=== PATIENT | male | born 1950 | race Caucasian/White ===

== ENCOUNTER 2017-04-14 18:48 | Emergency (ER) | payer MEDICARE, OTHER ==
[2017-04-14] MEDS ORDERED: IBUPROFEN 600 MG TABLET PO ONE (19:35)
[2017-04-14] MEDS ORDERED: ACETAMINOPHEN 325 MG TABLET PO ONE (19:36)
[2017-04-14] MEDS ORDERED: NORMAL SALINE 1,000 ML IV ONE (19:36)
[2017-04-14 19:40] LABS: BLOOD UREA NITROGEN 18 mg/dL (9-20); CALCIUM 8.8 mg/dL (8.4-10.2); CHLORIDE 103 mmol/L (98-107); EST GLOMERULAR FILTRATION RATE > 60 mL/min; GLUCOSE 126 mg/dL (70-100); SODIUM 137 mmol/L (137-145)
[2017-04-14 19:46] LABS: HEMATOCRIT 37.1 % (42.0-54.0); HEMOGLOBIN 12.6 g/dL (14.0-18.0); MEAN CELL VOLUME 95.9 fL (80.0-100.0); MEAN CORPUS. HGB CONCENTRATION 33.8 g/dL (32.0-36.0); MEAN CORPUSCULAR HEMOGLOBIN 32.4 pg (29.0-35.0); MEAN PLATELET VOLUME 7.9 fL (7.4-10.4); PLATELET COUNT 182 X 10^3uL (130-440); RED BLOOD COUNT 3.87 X 10^6uL (4.20-6.10); RED CELL DISTRIBUTION WIDTH 13.9 % (11.5-14.5); WHITE BLOOD COUNT 5.9 X 10^3uL (3.9-10.7)
[2017-04-14 20:05] LABS: BAND% (Manual) 1 % (0.0-1.0); EOSINOPHIL % (Manual) 1 % (0.0-6.0); LYMPHOCYTE % (Manual) 10 % (20.0-40.0); MONOCYTE % (Manual) 12 % (2.0-10.0); NEUTROPHIL % (Manual) 71 % (54.0-75.0)
[2017-04-14 20:06] LABS: OVALOCYTES PRESENT; PLATELET ESTIMATE ADEQUATE
[2017-04-14 20:07] LABS: STOMATOCYTE PRESENT
[2017-04-14] MEDS ORDERED: cefTRIAXone SODIUM 1,000 MG/10 ML VIAL ONE (20:38)
[2017-04-14] MEDS ORDERED: IPRATROPIUM/ALBUTEROL 0.5/3 MG 3 ML AMPUL.NEB INHALATION ONE (20:39)
[2017-04-14] MEDS ORDERED: NORMAL SALINE 100 ML IV ONE (20:39)
--- NOTE | 2017-04-14 21:36 | ER PHYSICIAN DOCUMENTATION ---
Physician Documentation [facility] Name:Nicholas Gomez Age:66 yrs Sex:Male :1950 Arrival Date:04/14/2017 Time:18:48 Bed5 Private MD:Thony Rodrigues ED, Chris Disposition: 04/14/17 21:17 Discharged to Home/Self Care. Impression: Pneumonia Bacterial - : Acute LLL. - Condition is Good. - Discharge Instructions: PNEUMONIA (Adult). - Prescriptions for cefdinir 300 mg Oral capsule - take 1 capsule by ORAL route every 12 hours for 10 days; 20 capsule. Ventolin HFA 90 mcg/actuation Inhalation HFA aerosol inhaler - inhale 2 puff by INHALATION route every 6 hours for 7 days; 1 Cartridge. - Medical Reconciliation form form. - Follow up: [facility]; When: 4- 6 days; Reason: Recheck today's complaints, Continuance of care. - Problem is new. - Symptoms have improved. - Notes: TAke Cefdinir 300mg by mouth every 12 hours for 10 days. Use Ventolin MDI 2 puffs by mouth every 6 hours for 7 days with Aerochamber.... Take Tylenol 650mg by mouth every 6 hours for 2 days... Take Ibuprofen 600mg by mouth every 6 hours with food for 2 days... Drink 2 liters of water every day... Historical: - Allergies: No known drug Allergies; - PMHx: CANCER; - Tetanus: < 10 years. - Ebola Screening: : Patient negative for fever greater than or equal to 101.5 degrees Fahrenheit, and additional compatible Ebola Virus Disease symptoms. Patient denies exposure to infectious person. Patient denies travel to an Ebola-affected area in the 21 days before illness onset. No symptoms or risks identified at this time. . - Immunization history: Flu Vaccine < 1 year. - Social history: Smoking status: Patient states was never smoker of tobacco. Vital Signs: 04/14 19:00 BP 174 / 87; Pulse 102; Resp 21 S; Temp 101; Pulse Ox 92% on R/A; Weight 113.4 kg; bw2 Height 5 ft. 11 in. (180.34 cm); Pain 0/10; 20:37 Pulse 84; Resp 21; Temp 99.0; Pulse Ox 94% ; bw2 21:19 BP 163 / 74; Pulse 80; Resp 20; Temp 98.9(O); Pulse Ox 94% on R/A; Pain 0/10; bw2 19:00 Body Mass Index 34.87 (113.40 kg, 180.34 cm) 2 MDM: 19:57 Patient medically screened. 04/14 19:46 Order name: BASIC METABOLIC PANEL; Complete Time: 20:21 EDID 04/14 19:58 Interpretation: Normal Except: GLUCOSE 126. 04/14 19:51 Order name: CBC W/ MANUAL DIFFERENTIAL; Complete Time: 20:21 EDID 04/14 19:58 Interpretation: Normal Except: HEMOGLOBIN 12.6; HEMATOCRIT 37.1; Anemia. 04/15 19:27 Order name: BLOOD CULTURE [facility] 04/15 19:27 Order name: BLOOD CULTURE [facility] 04/15 08:57 Order name: CXR 2V [id number] [facility] 04/14 21:22 Order name: Aerochamber - Spacer; Complete Time: 21:35 cd Dispensed Medications: 19:30 Drug: Tylenol 975 mg; Route: PO; bw2 19:46 Follow up: Response: No adverse reaction bw2 19:30 Drug: Ibuprofen 600 mg; Route: PO; bw2 19:46 Follow up: Response: No adverse reaction 2 19:30 Drug: NS 0.9% 1000 ml; Route: IV; Rate: bolus; Site: right antecubital; bw2 20:35 Follow up: IV Status: Completed infusion bw2 20:25 Drug: DuoNeb (Albuterol 2.5 mg, Atrovent 0.5 mg); 3 ml; Route: Nebulizer; bw2 20:37 Follow up: Response: No adverse reaction bw2 20:30 Drug: Rocephin 1 grams; Route: IVPB; Site: right antecubital; bw2 21:13 Follow up: IV Status: Completed infusion bw2 21:35 CANCELLED (Physician Discretion): Ventolin MDI 2 puffs Inhalation Per package bw2 directions; 2 puffs by mouth every 6 hours for 4 - 5 days with Aerochamber Signatures: Steven Carlos MD MD cd Wisely, Beth bw2
--- NOTE | 2017-04-14 21:36 | ER NURSING DOCUMENTATION ---
Nurse's Notes [facility] Name:Nicholas Gomez Age:66 yrs Sex:Male :1950 Arrival Date:04/14/2017 Time:18:48 Bed5 Private MD:Thony Rodrigues Diagnosis:Pneumonia Bacterial-: Acute LLL Presentation: 04/14 18:58 Presenting complaint: Patient states: states heh as been runny fevers at night x 2 bw2 weeks. states he went to his PCP and was given a Z pack. pt states he finished all medications, and no improvement. Transition of care: patient was not received from another setting of care. 18:58 Acuity: VIK 3 bw2 18:58 Method Of Arrival: Walk In 2 Triage Assessment: 19:00 General: Appears in no apparent distress, comfortable, Behavior is anxious, appropriate bw2 for age. Pain: Denies pain. Derm: No deficits noted. Skin is healthy with good turgor, Skin is moist. Historical: - Allergies: No known drug Allergies; - PMHx: CANCER; - Tetanus: < 10 years. - Ebola Screening: : Patient negative for fever greater than or equal to 101.5 degrees Fahrenheit, and additional compatible Ebola Virus Disease symptoms. Patient denies exposure to infectious person. Patient denies travel to an Ebola-affected area in the 21 days before illness onset. No symptoms or risks identified at this time. . - Immunization history: Flu Vaccine < 1 year. - Social history: Smoking status: Patient states was never smoker of tobacco. Screenin:04 Infectious Disease Risk None. Abuse screen: Denies threats or abuse. Denies injuries bw2 from another. Nutritional screening: No deficits noted. Assessment: 19:03 See Triage Assessment done by same RN. Respiratory: Airway is patent Respiratory effort bw2 is even, Respiratory pattern is regular, Breath sounds are diminished bilaterally. Derm: No deficits noted. Vital Signs: 19:00 BP 174 / 87; Pulse 102; Resp 21 S; Temp 101; Pulse Ox 92% on R/A; Weight 113.4 kg; bw2 Height 5 ft. 11 in. (180.34 cm); Pain 0/10; 20:37 Pulse 84; Resp 21; Temp 99.0; Pulse Ox 94% ; bw2 21:19 BP 163 / 74; Pulse 80; Resp 20; Temp 98.9(O); Pulse Ox 94% on R/A; Pain 0/10; bw2 19:00 Body Mass Index 34.87 (113.40 kg, 180.34 cm) bw2 ED Course: 18:51 Patient arrived in ED. ds 18:51 Thony Rodrigues is Private Physician. ds 18:58 Lupe Kyle is Primary Nurse. bw2 19:00 Triage completed. bw2 19:04 Valuables Remains with patient Bed in low position. bw2 19:20 Patient moved to radiology. ca 19:28 Patient moved back from radiology. ca 19:35 Inserted peripheral IV: 18 gauge in right antecubital area and blood collected. bw2 19:57 Steven Carlos MD is Attending Physician. cd 21:16 [facility] is Referral Physician. cd Administered Medications: 19:30 Drug: Tylenol 975 mg; Route: PO; bw2 19:46 Follow up: Response: No adverse reaction bw2 19:30 Drug: Ibuprofen 600 mg; Route: PO; bw2 19:46 Follow up: Response: No adverse reaction bw2 19:30 Drug: NS 0.9% 1000 ml; Route: IV; Rate: bolus; Site: right antecubital; bw2 20:35 Follow up: IV Status: Completed infusion bw2 20:25 Drug: DuoNeb (Albuterol 2.5 mg, Atrovent 0.5 mg); 3 ml; Route: Nebulizer; bw2 20:37 Follow up: Response: No adverse reaction bw2 20:30 Drug: Rocephin 1 grams; Route: IVPB; Site: right antecubital; bw2 21:13 Follow up: IV Status: Completed infusion bw2 21:35 CANCELLED (Physician Discretion): Ventolin MDI 2 puffs Inhalation Per package bw2 directions; 2 puffs by mouth every 6 hours for 4 - 5 days with Aerochamber Outcome: 21:17 Discharge ordered by . cd 21:19 Discharged to home ambulatory. bw2 21:19 Condition: good 21:19 Discharge Assessment: Patient awake, alert and oriented x 3. No cognitive and/or functional deficits noted. Patient verbalized understanding of disposition instructions. 21:19 Discharge instructions given to patient, Instructed on discharge instructions, follow up and referral plans. medication usage, Demonstrated understanding of instructions, medications, Prescriptions given X 2. 21:35 Patient left the ED. bw2 04/15 19:56 Discharge F/U Call: Unable to reach: no answer Signatures: Sydni Flores, Steven Garrison MD MD cd Arterberry, Dulce Sellers Anabella, Lupe 2
[2017-04-14] MEDS ORDERED: INHALER, ASSIST DEVICES 1 PKT EACH ONE (21:37)
--- NOTE | 2017-04-15 08:42 | RADIOLOGY REPORT ---
Two views of the chest are compared with multiple prior films examinations. The heart and vessels are unremarkable. Hazy infiltrate is noted at the left lung base. The lung de jesus are otherwise clear. No fluid or pneumothorax is seen. Incidentally noted is a 6 cm expansile lytic lesion involving the medial aspect of the right clavicle. This appears grossly unchanged dating back to CT scan of 11/06/2009. The finding is consistent with the known history of myeloma. IMPRESSION: 1. Stable lytic lesion involving the medial aspect of the right clavicle, consistent with the known diagnosis of myeloma. 2. Patchy infiltrate at the left lung base. MTDD
== END 2017-04-14 21:36 | disposition home or self-care (01) ==
LOC: ER 18:48
DX: J15.9 Unspecified bacterial pneumonia (principal); R50.9 Fever, unspecified; E86.0 Dehydration; Z85.9 Personal history of malignant neoplasm, unspecified
CPT/HCPCS: 71010; 71020; 80048; 85007; 85027; 87040; 94640; 96361; 96365; 99284; J0696; J7030; J7620